=== PATIENT | male | born 1940 | race Caucasian/White ===

== ENCOUNTER 2017-04-12 09:00 | Emergency (ER) | payer MEDICARE ==
[~2017-04-12] VITALS: Ht 175.3 cm; Wt 82.5 kg
[~2017-04-12 09:00] MED LIST: ASPIR 8181 MG PO; COLACE100 MG PO; FLO4 PO; IBUPROFEN400 MG PO; LIPI10 PO; METFORMIN ER500 M1 PO; NORCO1 TA1 PO; ZESTRIL20 MG PO
[2017-04-12 09:28] LABS: BASOPHIL % 0.8 % (0-2); PLATELET COUNT 226 x10^3mcL (130-400); RED CELL DISTRIBUTION WIDTH 14.2 % (11.5-14.5)
[2017-04-12 09:38] LABS: CALCIUM 9.1 mg/dL (8.5-10.1); CARBON DIOXIDE 28.8 mmol/L (21-32); CHLORIDE SERUM 103 mmol/L (98-107); CREATININE SERUM 1.4 mg/dL (0.7-1.3); GLUCOSE SERUM 159 mg/dL (74-106); POTASSIUM SERUM 4.2 mmol/L (3.5-5.1); SODIUM SERUM 138 mmol/L (136-145)
[2017-04-12 09:43] LABS: ALBUMIN 3.7 g/dL (3.4-5.0); ALKALINE PHOSPHATASE 56 U/L (46-116); ALT/SGPT 30 U/L (16-63); AST/SGOT 20 U/L (15-37); BILIRUBIN TOTAL 0.7 mg/dL (0.20-1.00); CHOLESTEROL 175 mg/dL (<200); LIPASE 147 IU/L (73-393); TOTAL PROTEIN, SERUM 7.9 g/dL (6.4-8.2); TRIGLYCERIDES 95 mg/dL (<150)
[2017-04-12 09:47] LABS: CHOLESTEROL/HDL RATIO 2.7; HDL CHOLESTEROL 66 mg/dL (40-60)
[2017-04-12 09:52] LABS: T3 TOTAL 0.99 ng/mL
[2017-04-12 09:53] LABS: FREE T4 1.05 ng/dL (0.76-1.46); FREE THYROXINE INDEX 2.6 ug/dL (1.4-4.5); T4(THYROXINE) 7.6 ug/dL (4.7-13.3)
[2017-04-12 10:42] VITALS: BP 120/71
== END 2017-04-12 10:42 | disposition short-term general hospital (02) ==
LOC: ED 09:00
PROVIDERS: Specialist
DX: R07.89 Other chest pain (principal); I10 Essential (primary) hypertension; E11.9 Type 2 diabetes mellitus without complications; E78.00 Pure hypercholesterolemia, unspecified; Z79.84 Long term (current) use of oral hypoglycemic drugs; Z79.899 Other long term (current) drug therapy; R06.02 Shortness of breath
CPT/HCPCS: 82962; 83880; 84439; J1644; J2270; J7030